=== PATIENT | male | born 1930 | race Caucasian/White ===

== ENCOUNTER 2016-12-03 15:28 | Observation (INO) | payer MEDICARE, OTHER ==
[2016-12-07] VITALS (15 sets, daily range): BP systolic 137–181; BP diastolic 71–90; PULSE 46–78; RESP 16–22; TEMP 97.5–97.9; O2SAT 97–99
[2016-12-07] MEDS ORDERED: NIFE30TA61 PO (13:06)
[2016-12-07] MEDS ORDERED: CARD8TAB PO (13:06)
[2016-12-07] MEDS ORDERED: GLIP10TA6 PO (13:06)
[2016-12-07] MEDS ORDERED: SIMV40TA PO (13:06)
[2016-12-07] MEDS ORDERED: SODIUM BICARBONATE 8.4% INJ 100 MEQ in SODIUM CHLOR 0.45% 1000 ML INJ 1,000 ML IV SCH (14:00)
--- NOTE | 2016-12-07 16:26 | HHI.HP ---
History of Present Illness Chief Complaint: Mr. Hawk is an 86/M patient with a cc of changing AAA. Pt denies any fever chills back or abdominal pain History of Present Illness Mr. Hawk is an 86/M patient with a cc of changing AAA. He underwent endovascular exclusion of his abdominal aortic aneurysm several years ago. He does not know the size of the aneurysm. He recently went for ultrasonographic surveillance which then was followed with a noncontrasted CT scan. The patient denies any fever, chills abdominal or back pain. He is otherwise in his usual state of health. He has renal insufficiency with an estimated kidney function of 30% of baseline according to the patient. (Deanne Wong) Past/Family/Social History Past Medical History DM HTN Renal Insufficiency Past Surgical History Cataract Surgery - OD Tonsillectomy Social History Occasional ETOH Former cigarette smoker 1 pack a day for (50 years) quit 16 years ago (Deanne Wong) Home Medications Reported Medications Doxazosin ER (Cardura XL)8 Mg Taber8 Mg PO DAILY #30 TAB Ref 0 12/07/16 Nifedipine ER 24 HR 30 Mg Tab30 Mg PO BID #30 TAB Ref 0 12/07/16 Glipizide 10 Mg Tab10 Mg PO DAILY #30 TAB Ref 0 Take 30 minutes before a meal 12/07/16 Simvastatin 40 Mg Tab40 Mg PO HS #30 TAB Ref 0 12/07/16 Coded Allergies: No Known Allergies (Unverified , 12/07/16) Review of Systems Pt DENIES any fever, chills, back or abdominal pain (Deanne Wong) Physical Exam Vitals/I&O Date Time Temp Pulse Resp B/P Pulse Ox O2 Delivery O2 Flow Rate FiO2 12/07/16 15:19 97.6 47 16 175/90 99 12/07/16 15:00 50 12/07/16 14:10 57 12/07/16 12:45 98 Room Air 12/07/16 12:45 97.8 73 16 181/90 98 Neuro: CN 2-12 intact Neck: Supple Heart: NSR with episodes of bradycardia 47-60 Lungs: clear Abdomen: soft and non-tender (Deanne Wong) Allergies Coded Allergies Type Severity Reaction Last Updated Verified No Known Allergies 12/07/16 No Procedure Category Date Status Time ^ Other Nursing Orders [facility] 12/07/16 In Process 12:36 Basic Metabolic Panel LAB 12/08/16 Verified (Bmp) 05:00 Machine Etcher / [facility] 12/07/16 In Process Telemetry 12:36 Sodium Chlor 0.45%... MED 12/07/16 In Process W/Sodium Bicarbona 14:00 ^ Call Physician [facility] 12/07/16 In Process 13:09 Vital Signs (Adult) [facility] 12/07/16 In Process 13:09 Diet Heart Healthy DIET 12/07/16 Transmitted Lunch Vital Signs Date Time Temp Pulse Resp B/P Pulse Ox O2 Delivery O2 Flow Rate FiO2 12/07/16 15:19 97.6 47 16 175/90 99 12/07/16 15:00 50 12/07/16 14:10 57 12/07/16 12:45 98 Room Air 12/07/16 12:45 97.8 73 16 181/90 98 (Deanne Wong) Assessment and Plan Assessment: (1) Aortic aneurysm Status: Chronic Plan Hydration CT tomorrow B/P control - B/P not to exceed 130 systolic (Deanne Wong) Plan Enlarging AAA after EVAR. Pt with severe CRI so admitted for IV hydration and planned CT. (Lamberto Lees MD) Problem Qualifiers (1) Aortic aneurysm: Deanne Wong Dec 07, 2016 16:26 Lamberto Lees MD Dec 07, 2016 16:27
[2016-12-07] MEDS ORDERED: GLUCAGON 1 MG/ML VIAL OTHER PRN (16:45)
[2016-12-07] MEDS ORDERED: DEXTROSE 50% IN WATER 50 ML VIAL(D50) IV PUSH PRN (16:45)
[2016-12-07] MEDS ORDERED: NALOXONE HCL 0.4 MG/ML AMP IV PRN (16:45)
[2016-12-07] MEDS: hydrALAZINE HCL 20 MG/ML VIAL IV PUSH PRN ×2 (17:15→20:58)
[2016-12-07] MEDS: INSULIN ASPART SUPPLEMENTAL SCALE SQ SCH (18:00)
[2016-12-07] MEDS: ACETYLCYSTEINE 20% 6,000 MG/30 ML ORAL SOLN VIAL PO SCH (20:59)
[2016-12-07] MEDS: HEPARIN SODIUM - SQ 10,000 UNITS/ML VIAL SQ SCH (21:00)
[2016-12-07] MEDS ORDERED: PRAVASTATIN SOD 80 MG TAB PO SCH (21:00)
[2016-12-08] VITALS (18 sets, daily range): BP systolic 147–181; BP diastolic 79–88; PULSE 51–96; RESP 16–20; TEMP 97.6–97.7; O2SAT 97–99
[2016-12-08] MEDS: hydrALAZINE HCL 20 MG/ML VIAL IV PUSH PRN ×3 (02:58→13:11)
[2016-12-08] MEDS: INSULIN ASPART SUPPLEMENTAL SCALE SQ SCH ×3 (06:00→12:29)
[2016-12-08] MEDS: HEPARIN SODIUM - SQ 10,000 UNITS/ML VIAL SQ SCH ×2 (06:15→12:31)
[2016-12-08 06:35] LABS: BICARBONATE 24.1 MEQ/L (21.0-32.0); POTASSIUM 3.8 MEQ/L (3.5-5.1)
[2016-12-08] MEDS ORDERED: ASPIRIN 325 MG TAB PO SCH (09:00)
[2016-12-08] MEDS ORDERED: PANTOPRAZOLE SOD 40 MG DELAYED RELEASE TAB PO SCH (09:00)
[2016-12-08] MEDS ORDERED: DOXAZOSIN 8 MG PO SCH (09:00)
[2016-12-08] MEDS ORDERED: NIFEdipine 30 MG SUSTAINED RELEASE TAB PO SCH (09:00)
[2016-12-08] MEDS: ACETYLCYSTEINE 20% 6,000 MG/30 ML ORAL SOLN VIAL PO SCH (09:20)
--- NOTE | 2016-12-08 10:01 | PD.VS.PN ---
Subjective Subjective/Hospital Course Pt rested well overnight, receiving mild alkalinized IVF and mucomyst. No abdominal pain or back pain. Objective Vitals/I&O Date Time Temp Pulse Resp B/P Pulse Ox O2 Delivery O2 Flow Rate FiO2 12/08/16 09:21 96 12/08/16 08:00 82 12/08/16 07:30 97.6 88 18 147/86 97 12/08/16 07:00 80 12/08/16 06:00 92 12/08/16 05:00 92 12/08/16 04:00 82 12/08/16 03:00 66 12/08/16 03:00 97.6 69 20 166/85 97 12/08/16 02:00 70 12/08/16 01:00 74 12/08/16 00:00 75 12/07/16 23:00 78 12/07/16 23:00 97.5 72 20 147/75 98 12/07/16 22:00 70 12/07/16 21:00 46 12/07/16 20:00 48 12/07/16 19:00 97 Room Air 12/07/16 19:00 97.9 48 22 170/71 97 12/07/16 19:00 56 12/07/16 18:20 55 12/07/16 17:45 137/71 12/07/16 17:15 178/85 12/07/16 17:00 52 12/07/16 16:07 55 12/07/16 15:19 97.6 47 16 175/90 99 12/07/16 15:00 50 12/07/16 14:10 57 12/07/16 12:45 98 Room Air 12/07/16 12:45 97.8 73 16 181/90 98 12/08/16 12/08/16 12/08/16 07:00 15:00 23:00 Intake Total 685 ml Output Total 1320 ml Balance -635 ml Physical Exam no abdominal TTP Laboratory Laboratory Tests Test 12/08/16 05:10 Sodium Level 146 Potassium Level 3.8 Chloride Level 110 Carbon Dioxide Level 24.1 Anion Gap 12 Blood Urea Nitrogen 29 Creatinine 1.86 Estimat Glomerular Filtration 34 Rate Random Glucose 105 Calcium Level 8.3 Assessment and Plan Assessment: (1) Aortic aneurysm Status: Chronic Plan Enlarging AAA after EVAR. Creatinine 1.9 today. I again discussed the risks and benefits of IV contrast with the patient and given the enlarging AAA and h/o EVAR, the clinical situation justifies the risk. He has been hydrated and medicated for protection. To get 3 phase CTA today and then likely home this afternoon. Problem Qualifiers (1) Aortic aneurysm: Lamberto Lees MD Dec 08, 2016 10:01
[2016-12-08] MEDS ORDERED: IOHEXOL 350 MG/ML 10 ML VIAL (for RAD DIAG) IV ONE (11:35)
--- NOTE | 2016-12-08 13:45 | RADRPT ---
EXAM DATE/TIME: 12/08/2016 11:15 [place] COMPARISON: No previous studies available for comparison. INDICATIONS : Aneurysm IV CONTRAST: 88 cc Omnipaque 350 (iohexol) IV ORAL CONTRAST: No oral contrast ingested. RADIATION DOSE: 15.12 CTDIvol (mGy) MEDICAL HISTORY : Cardiovascular disease. Hypertension. Diabetes mellitus type 1. SURGICAL HISTORY : EVAR ENCOUNTER: Initial ACUITY: 1 day PAIN SCALE: 0/10 LOCATION: abdomen TECHNIQUE: Volumetric scanning was performed using a multi-row detector CT scanner. The data was post processed with a variety of visualization algorithms including full volume maximum intensity projection, multi -planar sliding thin slab reformation, curved planar reformation, and surface rendering techniques. Using automated exposure control and adjustment of the mA and/or kV according to patient size, radiat ion dose was kept as low as reasonably achievable to obtain optimal diagnostic quality images. FINDINGS: Abdominal aorta: The aorta measures 3.2 cm at the diaphragmatic hiatus. The aorta remains at the upper limits of noe l in size across the origins of the celiac and SMA. There is an endograft in place. The right renal a rtery is widely patent. 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 The left kidney is atrophic and does not e nhance. The infrarenal portion of the graft is widely patent. The iliac limbs of the graft are widely patent. There is no evidence of endoleak. The aneurysm sac is somewhat irregular in shape and measur es approximately 8 cm in maximum dimension. CT source data: The limited portion of lung bases demonstrate COPD changes but are otherwise clear. The follow organs of the abdomen demonstrate an atrophic, minimally enhancing left kidney. The left renal artery is oc cluded. There is no retroperitoneal adenopathy. No free air or free fluid is present. Loops of small large bowel are unremarkable. The prostate is mildly enlarged. CONCLUSION: 1. The endograft is in excellent position and is widely patent. There is no evidence of endoleak. Max imum dimension of the aneurysm sac is approximately 8 cm. 2. 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 The left kidney is quite atrophic in size. Huber Venegas MD on December 08, 2016 at 13:37 Board Certified Radiologist. This report was verified electronically.
--- NOTE | 2016-12-08 14:16 | PD.VS.DC ---
Discharge Summary Admission Date: Dec 07, 2016 at 12:04 Discharge Date: Dec 08, 2016 Admission Diagnosis: (1) Aortic aneurysm Discharge Diagnosis: (1) Aortic aneurysm Status: Chronic Brief History from admission Mr. Hawk is an 86/M patient with a cc of changing AAA. He underwent endovascular exclusion of his abdominal aortic aneurysm several years ago. He does not know the size of the aneurysm. He recently went for ultrasonographic surveillance which then was followed with a noncontrasted CT scan. The patient denies any fever, chills abdominal or back pain. He is otherwise in his usual state of health. He has renal insufficiency with an estimated kidney function of 30% of baseline according to the patient. Procedure(s): CTA Significant Findings Laboratory Tests Test 12/08/16 05:10 Sodium Level 146 MEQ/L (136-145) Chloride Level 110 MEQ/L (98-107) Blood Urea Nitrogen 29 MG/DL (7-18) Creatinine 1.86 MG/DL (0.60-1.30) Estimat Glomerular Filtration 34 ML/MIN (>89) Rate Calcium Level 8.3 MG/DL (8.5-10.1) Hospital Course: Mr. Hawk is an 86/M patient with a cc of changing AAA. He underwent endovascular exclusion of his abdominal aortic aneurysm several years ago. He recently went for ultrasonographic surveillance which then was followed with a noncontrasted CT scan. The patient denies any fever, chills abdominal or back pain. He is otherwise in his usual state of health. He has renal insufficiency with an estimated kidney function of 30% of baseline according to the patient. Pt was admitted for hydration receiving mild alkalinized IVF and mucomyst that was given prior to CTA Risks and Benefits of IV contrast with the patient and was given. With the enlarging AAA and h/o EVAR, the clinical situation justifies the risk. He has been hydrated and medicated for protection. CT obtained and patient clear to go home. Pt will follow-up in [facility] in [facility]M [facility]. Vital Signs Date Time Temp Pulse Resp B/P Pulse Ox O2 Delivery O2 Flow Rate FiO2 12/08/16 13:01 74 12/08/16 12:10 97.7 51 16 180/79 99 12/08/16 12:10 52 12/08/16 12:05 161/88 12/08/16 11:45 97.7 51 16 181/83 99 12/08/16 11:04 82 12/08/16 10:00 86 12/08/16 09:21 96 12/08/16 08:30 97 Room Air 12/08/16 08:00 82 12/08/16 07:30 97.6 88 18 147/86 97 12/08/16 07:00 80 12/08/16 06:00 92 12/08/16 05:00 92 12/08/16 04:00 82 12/08/16 03:00 66 12/08/16 03:00 97.6 69 20 166/85 97 12/08/16 02:00 70 12/08/16 01:00 74 12/08/16 00:00 75 12/07/16 23:00 78 12/07/16 23:00 97.5 72 20 147/75 98 12/07/16 22:00 70 12/07/16 21:00 46 12/07/16 20:00 48 12/07/16 19:00 97 Room Air 12/07/16 19:00 97.9 48 22 170/71 97 12/07/16 19:00 56 12/07/16 18:20 55 12/07/16 17:45 137/71 12/07/16 17:15 178/85 12/07/16 17:00 52 12/07/16 16:07 55 12/07/16 15:19 97.6 47 16 175/90 99 12/07/16 15:00 50 Allergies Coded Allergies Type Severity Reaction Last Updated Verified No Known Allergies 12/07/16 No 12/06///////// 06:00 18:00 06:00 18:00 06:00 18:00 Intake Total 501 ml 685 ml Output Total 300 ml 1320 ml Balance 201 ml -635 ml Intake Oral 390 ml 240 ml IV Total 111 ml 445 ml Output Urine Total 300 ml 1320 ml Laboratory Tests Test 12/08/16 05:10 Sodium Level 146 MEQ/L Potassium Level 3.8 MEQ/L Chloride Level 110 MEQ/L Carbon Dioxide Level 24.1 MEQ/L Anion Gap 12 MEQ/L Blood Urea Nitrogen 29 MG/DL Creatinine 1.86 MG/DL Estimat Glomerular Filtration 34 ML/MIN Rate Random Glucose 105 MG/DL Calcium Level 8.3 MG/DL Procedure Category Date Status Time ^ Other Nursing Orders [facility] 12/07/16 In Process 12:36 Basic Metabolic Panel LAB 12/08/16 Complete (Bmp) 05:00 Mount Loader / [facility] 12/07/16 In Process Telemetry 12:36 Sodium Chlor 0.45%... MED 12/07/16 In Process W/Sodium Bicarbona 14:00 ^ Call Physician GRACIELA 12/07/16 In Process 13:09 Vital Signs (Adult) [facility] 12/07/16 In Process 13:09 Diet Heart Healthy DIET 12/07/16 Transmitted Lunch Hydralazine Inj MED 12/07/16 In Process (Apresoline Inj) 16:30 Aspirin (Aspirin) MED 12/08/16 In Process 09:00 Pantoprazole MED 12/08/16 In Process (Protonix) 09:00 Heparin Inj (Heparin MED 12/07/16 In Process Inj) 22:00 ^ Monitor [facility] 12/07/16 In Process 16:43 ^ Notify Dr: Gary OWENS 12/07/16 In Process Pressure 16:43 ^ Notify Dr: GRACIELA 12/07/16 In Process Respiratory Rate 16:43 ^ Notify Dr: Simin OWENS 12/07/16 In Process 16:43 Naloxone Inj (Narcan MED 12/07/16 In Process Inj) 16:45 ^ Notify Dr: Gary OWENS 12/07/16 In Process Pressure 16:43 ^ Notify Dr: GRACIELA 12/07/16 In Process Respiratory Rate 16:43 Bedside Glucose [facility] 12/07/16 In Process 16:43 ^ Blood Glucose Goal [facility] 12/07/16 In Process (Criteria 16:43 ^ Hypoglycemia 51 - [facility] 12/07/16 In Process 69 Mg/Dl 16:43 ^ Hypoglycemia 50 [facility] 12/07/16 In Process Mg/Dl Or < 16:43 ^ Notify Dr: Simin OWENS 12/07/16 In Process 16:43 Insulin Aspart MED 12/07/16 In Process Supplemtl Scale 18:00 Dextrose 50% In Arlyn MED 12/07/16 In Process (Vial) Inj (D50w (Vi 16:45 Glucagon Inj MED 12/07/16 In Process (Glucagon Inj) 16:45 Nifedipine Sr MED 12/08/16 In Process (Procardia Xl) 09:00 Patient Own Medication MED 12/08/16 In Process 09:00 Pravastatin MED 12/07/16 In Process (Pravachol) 21:00 Acetylcysteine 20% MED 12/07/16 In Process Liq (Mucomyst 20% Liq 21:00 Cta Abd/Pel W Iv RADCT 12/08/16 Resulted Contrast W 3d 10:01 Iohexol 350 Inj MED 12/08/16 Complete (Omnipaque 350 Inj) 11:35 Attending Discharge DISCHARGE 12/08/16 Transmitted Order Vital Signs Date Time Temp Pulse Resp B/P Pulse Ox O2 Delivery O2 Flow Rate FiO2 12/08/16 13:01 74 12/08/16 12:10 97.7 51 16 180/79 99 12/08/16 12:10 52 12/08/16 12:05 161/88 12/08/16 11:45 97.7 51 16 181/83 99 12/08/16 11:04 82 12/08/16 10:00 86 12/08/16 09:21 96 12/08/16 08:30 97 Room Air 12/08/16 08:00 82 12/08/16 07:30 97.6 88 18 147/86 97 12/08/16 07:00 80 12/08/16 06:00 92 12/08/16 05:00 92 12/08/16 04:00 82 12/08/16 03:00 66 12/08/16 03:00 97.6 69 20 166/85 97 12/08/16 02:00 70 12/08/16 01:00 74 12/08/16 00:00 75 12/07/16 23:00 78 12/07/16 23:00 97.5 72 20 147/75 98 12/07/16 22:00 70 12/07/16 21:00 46 12/07/16 20:00 48 12/07/16 19:00 97 Room Air 12/07/16 19:00 97.9 48 22 170/71 97 12/07/16 19:00 56 12/07/16 18:20 55 12/07/16 17:45 137/71 12/07/16 17:15 178/85 2/27/17 17:00 52 12/07/16 16:07 55 12/07/16 15:19 97.6 47 16 175/90 99 12/07/16 15:00 50 12/07/16 14:10 57 12/07/16 12:45 98 Room Air 12/07/16 12:45 97.8 73 16 181/90 98 Discharge Condition: Good Discharge Disposition: Discharge Home Discharge Instructions: Follow-up in OPC in 3M with [place] [facility] Pt is instructed to call the office should any Back/Abdominal pain occurs Call the office should you have any questions or concerns Deanne [facility] [phone] Any questions or concerns: Call [facility] at [facility] [phone] Deanne Wong Dec 08, 2016 14:16
--- NOTE | 2016-12-08 14:16 | PD.VS.PN ---
Subjective Subjective/Hospital Course Doing well after CT scan. Remains asymptomatic. Objective Vitals/I&O Date Time Temp Pulse Resp B/P Pulse Ox O2 Delivery O2 Flow Rate FiO2 12/08/16 13:01 74 12/08/16 12:10 97.7 51 16 180/79 99 12/08/16 12:10 52 12/08/16 12:05 161/88 12/08/16 11:45 97.7 51 16 181/83 99 12/08/16 11:04 82 12/08/16 10:00 86 12/08/16 09:21 96 12/08/16 08:30 97 Room Air 12/08/16 08:00 82 12/08/16 07:30 97.6 88 18 147/86 97 12/08/16 07:00 80 12/08/16 06:00 92 12/08/16 05:00 92 12/08/16 04:00 82 12/08/16 03:00 66 12/08/16 03:00 97.6 69 20 166/85 97 12/08/16 02:00 70 12/08/16 01:00 74 12/08/16 00:00 75 12/07/16 23:00 78 12/07/16 23:00 97.5 72 20 147/75 98 12/07/16 22:00 70 12/07/16 21:00 46 12/07/16 20:00 48 12/07/16 19:00 97 Room Air 12/07/16 19:00 97.9 48 22 170/71 97 12/07/16 19:00 56 12/07/16 18:20 55 12/07/16 17:45 137/71 12/07/16 17:15 178/85 12/07/16 17:00 52 12/07/16 16:07 55 12/07/16 15:19 97.6 47 16 175/90 99 12/07/16 15:00 50 12/08/16 12/08/16 12/08/16 06:59 14:59 22:59 Intake Total 685 ml Output Total 1320 ml Balance -635 ml Physical Exam no abdominal tenderness Laboratory Laboratory Tests Test 12/08/16 05:10 Sodium Level 146 Potassium Level 3.8 Chloride Level 110 Carbon Dioxide Level 24.1 Anion Gap 12 Blood Urea Nitrogen 29 Creatinine 1.86 Estimat Glomerular Filtration 34 Rate Random Glucose 105 Calcium Level 8.3 Imaging Last 48 hours Impressions Abdomen/Pelvis CT 12/08/16 1001 Signed Impressions: Service Date/Time: Thursday, December 08, 2016 11:15 - CONCLUSION: 1. The endograft is in excellent position and is widely patent. There is no evidence of endoleak. Maximum dimension of the aneurysm sac is approximately 8 cm. 2. 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 The left kidney is quite atrophic in size. Huber Venegas MD Assessment and Plan Assessment: (1) Aortic aneurysm Status: Chronic Plan CTA shows no endoleak. Given this, I propose that we see the patient back in with a repeat (Non contrasted) CT A/P/ The patient and his agree with the plan. To d/c today.. Discharge Planning today to home Problem Qualifiers (1) Aortic aneurysm: Lamberto Lees MD Dec 08, 2016 14:16
== END 2016-12-08 15:24 | disposition home or self-care (01) ==
LOC: HCIS 12-07 12:04
PROVIDERS: ADMIT Surgery; ATTEND Surgery
DX: I71.4 Abdominal aortic aneurysm, without rupture (principal); I12.9 Hypertensive chronic kidney disease with stage 1 through stage 4 chronic kidney disease, or unspecified chronic kidney disease; N18.9 Chronic kidney disease, unspecified; E11.22 Type 2 diabetes mellitus with diabetic chronic kidney disease; Z87.891 Personal history of nicotine dependence
CPT/HCPCS: 74174; 80048; 82948; G0378; J0360; J1644; J1815; Q9967